=== PATIENT | female | born 1955 | race Hispanic/Latino ===

== ENCOUNTER 2022-08-31 02:07 | Emergency (ER) | payer OTHER ==
[~2022-08-31] VITALS: Ht 154.9 cm; Wt 82.6 kg
[~2022-08-31 02:07] MED LIST: AMLO2.5T4 PO; CEFD300C3 PO; GABA-531 PO; PRAV20TA4 PO; TAMS-1 PO; TYL3B PO
[2022-08-31] MEDS ORDERED: KETOROLAC 15MG/ML VIAL (15MG/ML) IV ONE (02:30)
[2022-08-31 02:43] LABS: BASOPHILS % (AUTO) 0.5 % (0.0-5.0); EOSINOPHILS % (AUTO) 0.9 % (0.0-8.0); HEMATOCRIT 36.6 % (36-48); LYMPHOCYTES % (AUTO) 18.4 % (21.0-51.0); MEAN CORPUSCULAR HEMOGLOBIN 27.9 pg (27.0-33.0); MEAN CORPUSCULAR HGB CONC 32.5 g/dL (32.0-36.0); MEAN CORPUSCULAR VOLUME 85.9 fL (79-99); MONOCYTES % (AUTO) 7.9 % (3.0-13.0); PLATELET COUNT (AUTO) 241 K/uL (130-400); RED BLOOD CELL COUNT(AUTO) 4.26 MIL/uL (4.00-5.50); RED CELL DISTRIBUTION WIDTH 13.3 % (11.0-15.5); WHITE BLOOD COUNT (AUTO) 9.9 K/uL (4.8-10.8)
[2022-08-31 02:52] LABS: APPEARANCE,URINE CLOUDY (CLEAR); BILIRUBIN,URINE NEGATIVE (NEGATIVE); COLOR,URINE LIGHT-YELLOW (YELLOW); GLUCOSE, URINE (UA) NEGATIVE (NEGATIVE); KETONES,URINE NEGATIVE (NEGATIVE); LEUKOCYTE ESTERASE ,URINE 500 Leu/uL (NEGATIVE); NITRATE,URINE NEGATIVE (NEGATIVE); OCCULT BLOOD,URINE NEGATIVE (NEGATIVE); PROTEIN,URINE NEGATIVE (NEGATIVE); UROBILINOGEN,URINE 0.2 mg/dL (0.2-1.0)
[2022-08-31 02:52] LABS: CREATININE 1.4 mg/dL (0.5-1.5); POTASSIUM 4.3 mmol/L (3.5-5.1)
[2022-08-31 02:57] LABS: ALBUMIN 3.3 g/dL (3.5-5.0); TOTAL PROTEIN, SERUM 7.1 g/dL (6.0-8.3)
[2022-08-31 02:58] LABS: BACTERIA,URINE RARE /HPF (None Seen); SQUAMOUS EPITHELIAL CELL,UR MOD /HPF (0-2); WBC,URINE TNTC /HPF (0-1)
[2022-08-31] MEDS ORDERED: IBUP-2070 PO (03:23)
[2022-08-31] MEDS ORDERED: CEFU500T67 PO (03:23)
[2022-08-31] MEDS ORDERED: CEFTRIAXONE 1G VIAL IVP ONE (03:30)
[2022-08-31 03:59] VITALS: BP 38/62
== END 2022-08-31 04:11 | disposition home or self-care (01) ==
LOC: EDH 02:07
DX: N39.0 Urinary tract infection, site not specified (principal); N23 Unspecified renal colic; N13.30 Unspecified hydronephrosis; I10 Essential (primary) hypertension; E78.00 Pure hypercholesterolemia, unspecified; Z79.899 Other long term (current) drug therapy
CPT/HCPCS: 99285; 74176; 96374; 96375; 80053; 85025; 87077; 87088; 87186; 81001; 36415; J0696; J1885

== ENCOUNTER 2023-12-22 20:52 | Emergency (ER) | payer OTHER ==
[~2023-12-22] VITALS: Ht 154.9 cm; Wt 81.2 kg
[~2023-12-22 20:52] MED LIST changes: +CEFU500T67 PO; +IBUP-2070 PO
[2023-12-22 21:26] LABS: BASOPHILS # (AUTO) 0.05 K/uL (0.00-0.20); BASOPHILS % (AUTO) 0.4 % (0.0-5.0); EOSINOPHILS # (AUTO) 0.05 K/uL (0.00-0.70); EOSINOPHILS % (AUTO) 0.4 % (0.0-8.0); IMMATURE GRANULOCYTE ABSOLUTE 0.03 K/uL (0-1); LYMPHOCYTES % (AUTO) 16.9 % (21.0-51.0); MEAN CORPUSCULAR HEMOGLOBIN 28.1 pg (27.0-33.0); MEAN CORPUSCULAR HGB CONC 33.5 g/dL (32.0-36.0); MEAN CORPUSCULAR VOLUME 83.7 fL (79-99); MONOCYTES # (AUTO) 0.9 K/uL (0.1-1.0); MONOCYTES % (AUTO) 7.5 % (3.0-13.0); NEUTROPHILS # (AUTO) 8.7 K/uL (1.8-7.7); NEUTROPHILS % (AUTO) 74.5 % (40.0-77.0); PLATELET COUNT (AUTO) 237 K/uL (130-400); RED BLOOD CELL COUNT(AUTO) 4.42 MIL/uL (4.00-5.50); RED CELL DISTRIBUTION WIDTH 13.7 % (11.0-15.5); WHITE BLOOD COUNT (AUTO) 11.7 K/uL (4.8-10.8)
[2023-12-22 21:38] LABS: CREATININE 1.3 mg/dL (0.5-1.0); POTASSIUM 3.9 mmol/L (3.5-5.1)
[2023-12-22 21:43] LABS: ALBUMIN 3.8 g/dL (3.5-5.0); BILIRUBIN,TOTAL 0.7 mg/dL (0.2-1.0)
[2023-12-22 23:23] LABS: ADD UA MICROSCOPIC YES; APPEARANCE,URINE CLOUDY (CLEAR); BILIRUBIN,URINE NEGATIVE (NEGATIVE); COLOR,URINE YELLOW (YELLOW); GLUCOSE, URINE (UA) NEGATIVE (NEGATIVE); KETONES,URINE NEGATIVE (NEGATIVE); LEUKOCYTE ESTERASE ,URINE 250 Leu/uL (NEGATIVE); NITRATE,URINE 2+ (NEGATIVE); OCCULT BLOOD,URINE NEGATIVE (NEGATIVE); PROTEIN,URINE 20 mg/dL (NEGATIVE); UROBILINOGEN,URINE 0.2 mg/dL (0.2-1.0)
[2023-12-22 23:27] LABS: BACTERIA,URINE FEW /HPF (None Seen); MUCUS,URINE RARE LPF (None Seen); SQUAMOUS EPITHELIAL CELL,UR MANY /HPF (0-2)
[2023-12-23] MEDS: CEFTRIAXONE 1G VIAL IVPB ONE (00:15)
[2023-12-23] MEDS: LACTATED RINGERS 1000ML 957 ML IV ONE (00:27)
[2023-12-23] MEDS: LACTATED RINGERS IV ONE (02:31)
[2023-12-23 06:45] VITALS: BP 114/50; PULSE 87; RESP 20; O2SAT 96
== END 2023-12-23 07:01 | disposition short-term general hospital (02) ==
LOC: EDH 20:52
DX: N13.30 Unspecified hydronephrosis (principal); N12 Tubulo-interstitial nephritis, not specified as acute or chronic; E11.9 Type 2 diabetes mellitus without complications; E78.00 Pure hypercholesterolemia, unspecified; I10 Essential (primary) hypertension; Z79.2 Long term (current) use of antibiotics; Z79.899 Other long term (current) drug therapy; Z87.442 Personal history of urinary calculi; Z90.710 Acquired absence of both cervix and uterus
CPT/HCPCS: 99285; 80053; 85025; 87086 ×2; 87186; 81001; 36415; 96365; 74150; J7120 ×2; J0696